=== PATIENT | male | born 1960 | race Caucasian/White ===

== ENCOUNTER 2021-11-19 01:23 | Day surgery (SDC) | payer OTHER, SELFPAY ==
[2021-11-02 13:05] VITALS: BMI 27.4
[2021-11-19 08:26] VITALS: BP 130/79; PULSE 62; RESP 20; TEMP 36.5; O2SAT 99; BMI 28.3
[2021-11-19] MEDS: LACTATED RINGERS 1,000 ML 150 ML IV CONT (08:33)
--- NOTE | 2021-11-19 09:11 | WPDGICN ---
Assessment and Plan Assessment and plan (1) Screening for colon cancer: Code(s): Z12.11 - Encounter for screening for malignant neoplasm of colon Status: Acute Assessment and Plan: Patient presents today for neoplasia screening colonoscopy. Further recommendations will be given after endoscopy. (2) Family history of colonic polyps: Code(s): Z83.71 - Family history of colonic polyps Status: Acute Assessment and Plan: Patient reports both brother and sister have had colon polyps. Patient should consider follow-up colonoscopy at 5 year intervals in the future. GI Consult Note Consult date/time: 11/19/21 09:11 HPI: Edwin Carballo is a 61 year old male Presents for screening colonoscopy. Patient's current weight appetite and bowel movements are normal. He denies abdominal pain. He has had no bleeding. Family history is significant both sister and brother have been found to have colon polyps. Patient states his last colonoscopy 10 years ago was unremarkable. He presents today for neoplasia screening. Review of Systems Review of Systems: All systems reviewed & are unremarkable except as noted in HPI and below PMFSH Past Medical History Medical History (Updated 11/19/21 @ 09:12 by Josep Fontana MD) Fracture of femur following insertion of orthopedic implant, joint prosthesis, or bone plate, right leg Hypertension Normal colonoscopy Family History Family History Mother Family history of diabetes mellitus in first degree relative Hypertension Family history of heart disease in male family member before age 55 Father Hypertension Family history of diabetes mellitus in first degree relative Sibling Hypertension Malignant neoplasm of prostate Family history of diabetes mellitus in first degree relative Social History Social History Smoking packs per day: 2 Smoking cigarettes per day: 40.0 Smoking status: Former smoker Tobacco type: cigarettes Second hand tobacco smoke exposure: No Smoking end date: 07/11/98 Alcohol intake: former Substance use type: does not use Living arrangements: alone Spiritual care concerns: No Meds Home Medications and Allergies Home Medications Medication Instructions Recorded Confirmed Type aspirin 81 mg chewable tablet 81 mg PO DAILY 04/02/21 11/02/21 History multivitamin 1 tablet PO DAILY 04/02/21 11/02/21 History febuxostat 80 mg tablet 80 mg PO DAILY #90 tablet 04/10/21 11/02/21 Rx ergocalciferol (vitamin D2) 1,250 50,000 unit PO 2XW #24 cap 05/15/21 11/02/21 Rx mcg (50,000 unit) capsule triamterene 37.5 1 tablet PO QAM #90 tablet 06/09/21 11/02/21 Rx mg-hydrochlorothiazide 25 mg tablet nebivolol 10 mg tablet 10 mg PO DAILY #90 tablet 09/17/21 11/02/21 Rx epinephrine 0.3 mg/0.3 mL 0.3 mg IM ONCE #2 ea 10/01/21 11/02/21 Rx injection, auto-injector omega-3 acid ethyl esters 4 cap PO DAILY 11/02/21 11/02/21 History Allergies Allergy/AdvReac Type Severity Reaction Status Date / Time atorvastatin [From Lipitor] AdvReac bone pain Verified 11/19/21 08:24 Vital Signs Vital Signs - 24 hr 11/19/21 08:26 Temperature 97.7 F Pulse Rate 62 Respiratory Rate 20 Blood Pressure 130/79 Pulse Oximetry 99 Exam Narrative: Physical exam reveals patient to be alert. Vital signs stable. HEENT exam is unremarkable. Patient is anicteric. Lungs are clear to auscultation and percussion. Heart is without murmur or extra sounds. Abdominal exam bowel sounds are present soft nontender with no hepatosplenomegaly. Digital external rectal exam is normal.
--- NOTE | 2021-11-19 09:43 | WPDANESEPPF ---
Anes - Initial Pre Proc Eval Procedure: Operation Date: 11/19/21 09:30 Proposed Procedures p Screening Colonoscopy - Josep Fontana MD Date/Time: 11/19/21 09:43 Surgeon: Josep Fontana MD Pre Op Diagnosis: neoplasm screening Patient Data Age: 61 Gender: M Height: 1.73 m Weight: 84.5 kg Last Vital Signs Temp 97.7 F 11/19/21 08:26 Pulse 62 11/19/21 08:26 Resp 20 11/19/21 08:26 BP 130/79 11/19/21 08:26 Pulse Ox 99 11/19/21 08:26 Allergies Allergy/AdvReac Type Severity Reaction Status Date / Time atorvastatin [From Lipitor] AdvReac bone pain Verified 11/19/21 08:24 Home Medications Medication Instructions Recorded Confirmed Type aspirin 81 mg chewable tablet 81 mg PO DAILY 04/02/21 11/02/21 History multivitamin 1 tablet PO DAILY 04/02/21 11/02/21 History febuxostat 80 mg tablet 80 mg PO DAILY #90 tablet 04/10/21 11/02/21 Rx ergocalciferol (vitamin D2) 1,250 50,000 unit PO 2XW #24 cap 05/15/21 11/02/21 Rx mcg (50,000 unit) capsule triamterene 37.5 1 tablet PO QAM #90 tablet 06/09/21 11/02/21 Rx mg-hydrochlorothiazide 25 mg tablet nebivolol 10 mg tablet 10 mg PO DAILY #90 tablet 09/17/21 11/02/21 Rx epinephrine 0.3 mg/0.3 mL 0.3 mg IM ONCE #2 ea 10/01/21 11/02/21 Rx injection, auto-injector omega-3 acid ethyl esters 4 cap PO DAILY 11/02/21 11/02/21 History Patient hx anesthesia problems: none Family hx anesthesia problems: none Results Review: All pre-operative results and documents have been reviewed as part of the pre-operative evaluation. [facility] Past Medical History Medical History (Updated 11/19/21 @ 09:12 by Josep Fontana MD) Fracture of femur following insertion of orthopedic implant, joint prosthesis, or bone plate, right leg Hypertension Normal colonoscopy Family History Family History Mother Family history of diabetes mellitus in first degree relative Hypertension Family history of heart disease in male family member before age 55 Father Hypertension Family history of diabetes mellitus in first degree relative Sibling Hypertension Malignant neoplasm of prostate Family history of diabetes mellitus in first degree relative Social History Social History Smoking packs per day: 2 Smoking cigarettes per day: 40.0 Smoking status: Former smoker Tobacco type: cigarettes Second hand tobacco smoke exposure: No Smoking end date: 07/11/98 Alcohol intake: former Substance use type: does not use Living arrangements: alone Spiritual care concerns: No Anes - Eval Final PreProcedure Day of Procedure 11/19/21 09:43 Patient weight: overweight Heart: regular rate and rhythm Lungs: clear to auscultation Airway: Mallampati scale class II Neurological: alert and oriented Last oral intake: >/= 8 hours ASA classification: II Emergent: no Anesthetic plan: proceed Anesthesia type and monitoring: general GIVS and standard monitoring Results Review: All pre-operative results and documents have been reviewed as part of the pre-operative evaluation. Informed Consent: The patient's anesthetic plan and its attendant risks and benefits were discussed with the patient/family/POA. Questions were solicited and answers provided to the satisfaction of the patient/family/POA.
[2021-11-19 10:14] VITALS: BP 112/67; PULSE 60; RESP 11; O2SAT 100
[2021-11-19 10:24] VITALS: BP 106/66; PULSE 62; RESP 16; O2SAT 100
[2021-11-19 10:34] VITALS: BP 120/77; PULSE 55; RESP 21; O2SAT 100
== END 2021-11-19 10:38 | disposition home or self-care (01) ==
PROVIDERS: PCP Family Medicine; Visit Provider Internal Medicine Gastroenterology
PROC: 0DJD8ZZ Inspection of Lower Intestinal Tract, Via Natural or Artificial Opening Endoscopic (ICD-10-PCS; CPT 45378; principal; 2021-11-19 09:30)
DX: Z12.11 Encounter for screening for malignant neoplasm of colon (principal); K64.8 Other hemorrhoids; Z83.71 Family history of colonic polyps; I10 Essential (primary) hypertension; Z87.891 Personal history of nicotine dependence; Z79.82 Long term (current) use of aspirin
CPT/HCPCS: 45378; J2704; J7120